=== PATIENT | female | born 1975 | race Hispanic/Latino ===

== ENCOUNTER 2021-08-09 17:45 | Emergency (ER) | payer MEDICARE ==
[~2021-08-09] VITALS: Ht 157.5 cm; Wt 99.8 kg
[2021-08-09] MEDS ORDERED: FAMOTIDINE 20MG VIAL IV ONE (18:00)
[2021-08-09] MEDS ORDERED: MAG/ALUM/SIMETH 30 ML UDCUP PO ONE (18:00)
[2021-08-09] MEDS ORDERED: MORPHINE 2 MG SYG IVP ONE (18:00)
[2021-08-09] MEDS ORDERED: ONDANSETRON 4MG INJ IVP ONE (18:00)
[2021-08-09 18:06] LABS: BILIRUBIN,URINE Negative (NEGATIVE); COLOR,URINE Yellow (YELLOW); GLUCOSE, URINE (UA) Negative (NEGATIVE); KETONES,URINE Negative (NEGATIVE); LEUKOCYTE ESTERASE ,URINE Negative (NEGATIVE); NITRATE,URINE Negative (NEGATIVE); OCCULT BLOOD,URINE Negative (NEGATIVE); PH,URINE 5.5 (5.0-8.0); PROTEIN,URINE Negative (NEGATIVE); UROBILINOGEN,URINE 0.2 mg/dL (0.2-1.0)
[2021-08-09 18:07] LABS: APPEARANCE,URINE CLEAR (CLEAR)
[2021-08-09 18:17] LABS: BASOPHILS % (AUTO) 0.4 % (0.0-5.0); EOSINOPHILS % (AUTO) 1.1 % (0.0-8.0); HEMATOCRIT 41.8 % (36-48); LYMPHOCYTES % (AUTO) 22.6 % (21.0-51.0); MEAN CORPUSCULAR HEMOGLOBIN 31.2 pg (27.0-33.0); MEAN CORPUSCULAR HGB CONC 33.5 g/dL (32.0-36.0); MEAN CORPUSCULAR VOLUME 93.1 fL (79-99); MONOCYTES % (AUTO) 8.4 % (3.0-13.0); PLATELET COUNT (AUTO) 257 K/uL (130-400); RED BLOOD CELL COUNT(AUTO) 4.49 MIL/uL (4.00-5.50); RED CELL DISTRIBUTION WIDTH 12.6 % (11.0-15.5); WHITE BLOOD COUNT (AUTO) 10.8 K/uL (4.8-10.8)
[2021-08-09 18:31] LABS: CREATININE 0.8 mg/dL (0.5-1.5); POTASSIUM 4.3 mmol/L (3.5-5.1)
[2021-08-09 18:41] LABS: ALBUMIN 3.5 g/dL (3.5-5.0); BILIRUBIN,TOTAL 0.2 mg/dL (0.2-1.0); TOTAL PROTEIN, SERUM 7.8 g/dL (6.0-8.3)
[2021-08-09] MEDS ORDERED: FAMO-136 PO (19:11)
[2021-08-09] MEDS ORDERED: DICY20TA2 PO (19:11)
[2021-08-09] MEDS ORDERED: ONDA4TAB10 PO (19:11)
[2021-08-09 19:21] VITALS: BP 142/72
== END 2021-08-09 19:30 | disposition home or self-care (01) ==
LOC: EDH 17:45
DX: K29.70 Gastritis, unspecified, without bleeding (principal); I10 Essential (primary) hypertension; E78.00 Pure hypercholesterolemia, unspecified; Z88.0 Allergy status to penicillin; Z88.6 Allergy status to analgesic agent
CPT/HCPCS: 36415; 71045; 76705; 80053; 81003; 83690; 84484; 84702; 85025; 93005; 96374; 96375; 99285; J2405; J3490

== ENCOUNTER 2021-08-27 02:04 | Emergency (ER) | payer MEDICARE ==
[~2021-08-27] VITALS: Ht 134.6 cm; Wt 101.6 kg
[~2021-08-27 02:04] MED LIST: DICY20TA2 PO; FAMO-136 PO; ONDA4TAB10 PO
[2021-08-27 02:49] LABS: BASOPHILS % (AUTO) 0.5 % (0.0-5.0); HEMATOCRIT 41.1 % (36-48); LYMPHOCYTES % (AUTO) 29.1 % (21.0-51.0); MEAN CORPUSCULAR HGB CONC 32.8 g/dL (32.0-36.0); MEAN CORPUSCULAR VOLUME 94.5 fL (79-99); MONOCYTES % (AUTO) 8.3 % (3.0-13.0); NEUTROPHILS % (AUTO) 59.6 % (40.0-77.0); PLATELET COUNT (AUTO) 243 K/uL (130-400); RED BLOOD CELL COUNT(AUTO) 4.35 MIL/uL (4.00-5.50); RED CELL DISTRIBUTION WIDTH 12.5 % (11.0-15.5); WHITE BLOOD COUNT (AUTO) 8.8 K/uL (4.8-10.8)
[2021-08-27] MEDS ORDERED: MAG/ALUM/SIMETH 30 ML UDCUP PO ONE (03:00)
[2021-08-27] MEDS ORDERED: DICYCLOMINE HCL 10 MG/5 ML ML PO ONE (03:00)
[2021-08-27] MEDS ORDERED: 0.9%NACL 1000ML 1,000 ML IV ONE (03:00)
[2021-08-27] MEDS ORDERED: ONDANSETRON 4MG INJ IVP ONE (03:00)
[2021-08-27] MEDS ORDERED: LIDOCAINE HCL 2% VISCOUS 15 ML UDCUP PO ONE (03:00)
[2021-08-27 03:06] LABS: CREATININE 0.8 mg/dL (0.5-1.5); POTASSIUM 4.5 mmol/L (3.5-5.1)
[2021-08-27 03:07] LABS: BILIRUBIN,URINE Negative (NEGATIVE); COLOR,URINE Yellow (YELLOW); GLUCOSE, URINE (UA) Negative (NEGATIVE); KETONES,URINE Negative (NEGATIVE); LEUKOCYTE ESTERASE ,URINE Negative (NEGATIVE); NITRATE,URINE Negative (NEGATIVE); OCCULT BLOOD,URINE Negative (NEGATIVE); PH,URINE 6.5 (5.0-8.0); PROTEIN,URINE Negative (NEGATIVE); UROBILINOGEN,URINE 0.2 mg/dL (0.2-1.0)
[2021-08-27 03:10] LABS: APPEARANCE,URINE CLEAR (CLEAR)
[2021-08-27 03:17] LABS: ALBUMIN 3.2 g/dL (3.5-5.0); BILIRUBIN,TOTAL 0.2 mg/dL (0.2-1.0); TOTAL PROTEIN, SERUM 7.1 g/dL (6.0-8.3)
[2021-08-27] MEDS ORDERED: IOHEXOL 350 MG/ML 100ML INFUS..BTL IV ONE (03:42)
[2021-08-27] MEDS ORDERED: ACET1TAB25 PO (04:43)
[2021-08-27 05:04] VITALS: BP 119/64
== END 2021-08-27 05:13 | disposition home or self-care (01) ==
LOC: EDH 02:04
DX: K43.9 Ventral hernia without obstruction or gangrene (principal); R11.2 Nausea with vomiting, unspecified; E78.00 Pure hypercholesterolemia, unspecified; F17.200 Nicotine dependence, unspecified, uncomplicated; Z88.0 Allergy status to penicillin; Z88.6 Allergy status to analgesic agent; Z79.899 Other long term (current) drug therapy
CPT/HCPCS: 36415; 74177; 80053; 81003; 83690; 84484; 85025; 96361; 96374; 99285; J2405; J7030; Q9967

== ENCOUNTER 2021-09-02 15:01 | Emergency (ER) | payer MEDICARE ==
[~2021-09-02] VITALS: Ht 149.9 cm; Wt 101.6 kg
[~2021-09-02 15:01] MED LIST changes: +ACET1TAB25 PO
[2021-09-02] MEDS ORDERED: 0.9%NACL 1000ML 1,000 ML IV ONE (17:00)
[2021-09-02] MEDS ORDERED: METOCLOPRAMIDE 10 MG/2 ML VIAL IVP ONE (17:00)
[2021-09-02] MEDS ORDERED: MAG/ALUM/SIMETH 30 ML UDCUP PO ONE (17:00)
[2021-09-02 17:14] LABS: BASOPHILS % (AUTO) 0.5 % (0.0-5.0); EOSINOPHILS % (AUTO) 0.6 % (0.0-8.0); HEMATOCRIT 43.1 % (36-48); LYMPHOCYTES % (AUTO) 22.3 % (21.0-51.0); MEAN CORPUSCULAR HEMOGLOBIN 31.4 pg (27.0-33.0); MEAN CORPUSCULAR HGB CONC 34.1 g/dL (32.0-36.0); MEAN CORPUSCULAR VOLUME 92.1 fL (79-99); MONOCYTES % (AUTO) 6.7 % (3.0-13.0); NEUTROPHILS % (AUTO) 69.6 % (40.0-77.0); PLATELET COUNT (AUTO) 275 K/uL (130-400); RED BLOOD CELL COUNT(AUTO) 4.68 MIL/uL (4.00-5.50); RED CELL DISTRIBUTION WIDTH 12.2 % (11.0-15.5); WHITE BLOOD COUNT (AUTO) 9.5 K/uL (4.8-10.8)
[2021-09-02 17:24] LABS: CREATININE 0.8 mg/dL (0.5-1.5); POTASSIUM 3.8 mmol/L (3.5-5.1)
[2021-09-02 17:35] LABS: ALBUMIN 3.7 g/dL (3.5-5.0); BILIRUBIN,TOTAL 0.2 mg/dL (0.2-1.0); TOTAL PROTEIN, SERUM 7.9 g/dL (6.0-8.3)
[2021-09-02] MEDS ORDERED: MORPHINE 2 MG SYG IVP ONE (19:00)
[2021-09-02] MEDS ORDERED: ACET1TAB25 PO (19:26)
[2021-09-02] MEDS ORDERED: DICY20TA2 PO (19:26)
[2021-09-02] MEDS ORDERED: METO10TA41 PO (19:26)
[2021-09-02 19:39] VITALS: BP 132/78
== END 2021-09-02 20:03 | disposition home or self-care (01) ==
LOC: EDH 15:01
DX: A08.4 Viral intestinal infection, unspecified (principal); K43.9 Ventral hernia without obstruction or gangrene; Z88.0 Allergy status to penicillin; Z88.6 Allergy status to analgesic agent; E78.00 Pure hypercholesterolemia, unspecified; E66.9 Obesity, unspecified; F17.200 Nicotine dependence, unspecified, uncomplicated; Z79.899 Other long term (current) drug therapy; Z68.42 Body mass index [BMI] 45.0-49.9, adult
CPT/HCPCS: 36415; 80053; 83690; 84702; 85025; 96361; 96374; 96375; 99284; J2765; J7030

== ENCOUNTER 2021-09-17 07:37 | Emergency (ER) | payer MEDICARE ==
[~2021-09-17] VITALS: Ht 142.2 cm; Wt 103.0 kg
[~2021-09-17 07:37] MED LIST changes: +METO10TA41 PO
[2021-09-17 08:35] LABS: BASOPHILS % (AUTO) 0.5 % (0.0-5.0); EOSINOPHILS % (AUTO) 1.7 % (0.0-8.0); HEMATOCRIT 43.3 % (36-48); LYMPHOCYTES % (AUTO) 27.4 % (21.0-51.0); MEAN CORPUSCULAR HEMOGLOBIN 30.9 pg (27.0-33.0); MEAN CORPUSCULAR HGB CONC 32.8 g/dL (32.0-36.0); MEAN CORPUSCULAR VOLUME 94.1 fL (79-99); MONOCYTES % (AUTO) 9.4 % (3.0-13.0); NEUTROPHILS % (AUTO) 60.7 % (40.0-77.0); PLATELET COUNT (AUTO) 243 K/uL (130-400); RED CELL DISTRIBUTION WIDTH 12.6 % (11.0-15.5); WHITE BLOOD COUNT (AUTO) 7.5 K/uL (4.8-10.8)
[2021-09-17 09:04] LABS: CREATININE 0.7 mg/dL (0.5-1.5); POTASSIUM 3.8 mmol/L (3.5-5.1)
[2021-09-17 09:09] LABS: ALBUMIN 3.4 g/dL (3.5-5.0); BILIRUBIN,TOTAL 0.2 mg/dL (0.2-1.0); TOTAL PROTEIN, SERUM 7.6 g/dL (6.0-8.3)
[2021-09-17 09:14] VITALS: BP 129/68
[2021-09-17] MEDS ORDERED: HYDR-4060 PO (09:26)
[2021-09-17] MEDS ORDERED: HYDROCODONE/ACETAMINOPHEN 5/325 MG TAB PO ONE (10:00)
[2021-09-17] MEDS ORDERED: HYDROCODONE/ACETAMINOPHEN 5/325 MG TAB ONE (10:04)
[2021-09-17 10:34] LABS: APPEARANCE,URINE Clear (CLEAR); BILIRUBIN,URINE Negative (NEGATIVE); COLOR,URINE Yellow (YELLOW); GLUCOSE, URINE (UA) Negative (NEGATIVE); KETONES,URINE Negative (NEGATIVE); LEUKOCYTE ESTERASE ,URINE Negative (NEGATIVE); NITRATE,URINE Negative (NEGATIVE); OCCULT BLOOD,URINE Negative (NEGATIVE); PROTEIN,URINE Negative (NEGATIVE); UROBILINOGEN,URINE 0.2 mg/dL (0.2-1.0)
== END 2021-09-17 10:10 | disposition home or self-care (01) ==
LOC: EDH 07:37
DX: K43.9 Ventral hernia without obstruction or gangrene (principal); J45.909 Unspecified asthma, uncomplicated; E78.49 Other hyperlipidemia; F17.200 Nicotine dependence, unspecified, uncomplicated; Z88.6 Allergy status to analgesic agent; Z88.0 Allergy status to penicillin; Z79.899 Other long term (current) drug therapy
CPT/HCPCS: 36415; 80053; 81003; 81025; 85025

== ENCOUNTER 2021-10-20 17:45 | Emergency (ER) | payer MEDICARE ==
[~2021-10-20] VITALS: Ht 134.6 cm; Wt 102.1 kg
[~2021-10-20 17:45] MED LIST changes: +HYDR-4060 PO
[2021-10-20 19:32] LABS: BASOPHILS % (AUTO) 0.4 % (0.0-5.0); EOSINOPHILS % (AUTO) 2.1 % (0.0-8.0); HEMATOCRIT 45.3 % (36-48); LYMPHOCYTES % (AUTO) 24.8 % (21.0-51.0); MEAN CORPUSCULAR HGB CONC 32.5 g/dL (32.0-36.0); MEAN CORPUSCULAR VOLUME 92.4 fL (79-99); MONOCYTES % (AUTO) 7.9 % (3.0-13.0); NEUTROPHILS % (AUTO) 64.4 % (40.0-77.0); PLATELET COUNT (AUTO) 269 K/uL (130-400); RED CELL DISTRIBUTION WIDTH 12.2 % (11.0-15.5); WHITE BLOOD COUNT (AUTO) 9.2 K/uL (4.8-10.8)
[2021-10-20 20:12] LABS: CREATININE 0.7 mg/dL (0.5-1.5); POTASSIUM 3.3 mmol/L (3.5-5.1)
[2021-10-20 20:16] LABS: ALBUMIN 3.8 g/dL (3.5-5.0); BILIRUBIN,TOTAL 0.1 mg/dL (0.2-1.0); TOTAL PROTEIN, SERUM 8.4 g/dL (6.0-8.3)
[2021-10-20 21:27] LABS: APPEARANCE,URINE Clear (CLEAR); BILIRUBIN,URINE Negative (NEGATIVE); COLOR,URINE Yellow (YELLOW); GLUCOSE, URINE (UA) Negative (NEGATIVE); KETONES,URINE Negative (NEGATIVE); LEUKOCYTE ESTERASE ,URINE Negative (NEGATIVE); NITRATE,URINE Negative (NEGATIVE); OCCULT BLOOD,URINE Negative (NEGATIVE); PROTEIN,URINE Negative (NEGATIVE); UROBILINOGEN,URINE 0.2 mg/dL (0.2-1.0)
[2021-10-20 21:34] LABS: HCG,QUAL RESULT NEGATIVE (NEGATIVE)
[2021-10-20 22:03] VITALS: BP 149/76
[2021-10-20] MEDS ORDERED: MORPHINE 2 MG SYG IVP ONE (22:30)
[2021-10-20] MEDS ORDERED: FAMOTIDINE 20MG VIAL IV ONE (22:30)
[2021-10-20] MEDS ORDERED: ONDANSETRON 4MG INJ IVP ONE (22:30)
[2021-10-20] MEDS ORDERED: DICY20TA2 PO (22:31)
[2021-10-20] MEDS ORDERED: FAMO20TA8 PO (22:31)
[2021-10-20] MEDS ORDERED: ONDA4TAB10 PO (22:31)
== END 2021-10-20 22:45 | disposition home or self-care (01) ==
LOC: EDH 17:45
DX: K42.9 Umbilical hernia without obstruction or gangrene (principal); R10.13 Epigastric pain; R11.0 Nausea; E78.00 Pure hypercholesterolemia, unspecified; J45.909 Unspecified asthma, uncomplicated; F17.200 Nicotine dependence, unspecified, uncomplicated; Z79.899 Other long term (current) drug therapy; Z88.0 Allergy status to penicillin; Z88.6 Allergy status to analgesic agent; Z90.49 Acquired absence of other specified parts of digestive tract
CPT/HCPCS: 36415; 74176; 80053; 81003; 81025; 83690; 85025; 96374; 96375; 99284; J2405; J3490

== ENCOUNTER 2021-11-14 01:15 | Emergency (ER) | payer MEDICARE ==
[~2021-11-14] VITALS: Ht 144.8 cm; Wt 103.0 kg
[~2021-11-14 01:15] MED LIST changes: +FAMO20TA8 PO
[2021-11-14] MEDS ORDERED: ONDANSETRON 4MG INJ IVP ONE (02:00)
[2021-11-14] MEDS ORDERED: PANTOPRAZOLE 40 MG/VIAL IVP ONE (02:00)
[2021-11-14] MEDS ORDERED: FAMOTIDINE 20MG VIAL IV ONE (02:00)
[2021-11-14] MEDS ORDERED: 0.9%NACL 1000ML 1,000 ML IV ONE (02:00)
[2021-11-14 02:41] LABS: BASOPHILS % (AUTO) 0.5 % (0.0-5.0); EOSINOPHILS % (AUTO) 2.2 % (0.0-8.0); HEMATOCRIT 41.6 % (36-48); LYMPHOCYTES % (AUTO) 26.5 % (21.0-51.0); MEAN CORPUSCULAR HEMOGLOBIN 30.6 pg (27.0-33.0); MEAN CORPUSCULAR HGB CONC 32.5 g/dL (32.0-36.0); MEAN CORPUSCULAR VOLUME 94.3 fL (79-99); NEUTROPHILS % (AUTO) 62.2 % (40.0-77.0); PLATELET COUNT (AUTO) 248 K/uL (130-400); RED BLOOD CELL COUNT(AUTO) 4.41 MIL/uL (4.00-5.50); RED CELL DISTRIBUTION WIDTH 12.7 % (11.0-15.5); WHITE BLOOD COUNT (AUTO) 9.9 K/uL (4.8-10.8)
[2021-11-14 02:52] LABS: CREATININE 0.7 mg/dL (0.5-1.5); POTASSIUM 4.1 mmol/L (3.5-5.1)
[2021-11-14 02:56] LABS: ALBUMIN 3.4 g/dL (3.5-5.0); BILIRUBIN,TOTAL 0.1 mg/dL (0.2-1.0); MAGNESIUM 1.9 mg/dL (1.80-2.40); PHENYTOIN (DILANTIN) 1.8 mcg/mL (10.0-20.0); TOTAL PROTEIN, SERUM 7.7 g/dL (6.0-8.3)
[2021-11-14 03:01] LABS: APPEARANCE,URINE CLEAR (CLEAR); BILIRUBIN,URINE NEGATIVE (NEGATIVE); COLOR,URINE YELLOW (YELLOW); GLUCOSE, URINE (UA) NEGATIVE (NEGATIVE); KETONES,URINE NEGATIVE (NEGATIVE); LEUKOCYTE ESTERASE ,URINE NEGATIVE (NEGATIVE); NITRATE,URINE NEGATIVE (NEGATIVE); OCCULT BLOOD,URINE NEGATIVE (NEGATIVE); PROTEIN,URINE NEGATIVE (NEGATIVE); UROBILINOGEN,URINE 0.2 mg/dL (0.2-1.0)
[2021-11-14 03:03] LABS: HCG,QUAL RESULT NEGATIVE (NEGATIVE)
[2021-11-14 03:09] LABS: AMPHET/METH SCREEN,URINE NEGATIVE (NEGATIVE); BARBITURATE SCREEN, URINE NEGATIVE (NEGATIVE); BENZODIAZEPINES SCREEN,URINE NEGATIVE (NEGATIVE); CANNABINOID SCREEN,URINE NEGATIVE (NEGATIVE); COCAINE SCREEN,URINE NEGATIVE (NEGATIVE); OPIATE SCREEN,URINE NEGATIVE (NEGATIVE); PHENCYCLIDINE SCREEN,URINE NEGATIVE (NEGATIVE)
[2021-11-14] MEDS ORDERED: METO-296 PO (03:48)
[2021-11-14] MEDS ORDERED: PANT40TA PO (03:48)
[2021-11-14] MEDS ORDERED: ONDA4TAB10 PO (03:48)
[2021-11-14] MEDS ORDERED: PHENYTOIN SODIUM 100 MG ERCAP PO ONE (04:00)
[2021-11-14 04:26] VITALS: BP 142/87
== END 2021-11-14 04:25 | disposition home or self-care (01) ==
LOC: EDH 01:15
DX: E86.9 Volume depletion, unspecified (principal); R11.10 Vomiting, unspecified; R53.81 Other malaise; R89.2 Abnormal level of other drugs, medicaments and biological substances in specimens from other organs, systems and tissues; M25.561 Pain in right knee; Z20.822 Contact with and (suspected) exposure to COVID-19; E78.5 Hyperlipidemia, unspecified; J45.909 Unspecified asthma, uncomplicated; K21.9 Gastro-esophageal reflux disease without esophagitis; F17.200 Nicotine dependence, unspecified, uncomplicated; Z88.0 Allergy status to penicillin; Z88.1 Allergy status to other antibiotic agents; Z88.6 Allergy status to analgesic agent; Z79.899 Other long term (current) drug therapy; Z90.49 Acquired absence of other specified parts of digestive tract
CPT/HCPCS: 36415; 71045; 73562; 80053; 80185; 80305; 81003; 81025; 83735; 84484; 85025; 87635; 93005; 96374; 96375; 99285; C9113; C9803; J2405; J3490; J7030

== ENCOUNTER 2021-12-25 22:59 | Emergency (ER) | payer MEDICARE ==
[~2021-12-25] VITALS: Ht 147.3 cm; Wt 105.2 kg
[~2021-12-25 22:59] MED LIST changes: +ACET-2079 PO; -ACET1TAB25 PO; +METO-296 PO; +PANT40TA PO
[2021-12-25 23:55] LABS: APPEARANCE,URINE Clear (CLEAR); BILIRUBIN,URINE Negative (NEGATIVE); COLOR,URINE Yellow (YELLOW); GLUCOSE, URINE (UA) Negative (NEGATIVE); KETONES,URINE Negative (NEGATIVE); LEUKOCYTE ESTERASE ,URINE Trace (NEGATIVE); NITRATE,URINE Negative (NEGATIVE); OCCULT BLOOD,URINE Negative (NEGATIVE); PH,URINE 6.5 (5.0-8.0); PROTEIN,URINE Negative (NEGATIVE); UROBILINOGEN,URINE 0.2 mg/dL (0.2-1.0)
[2021-12-25 23:57] LABS: BASOPHILS % (AUTO) 0.5 % (0.0-5.0); EOSINOPHILS % (AUTO) 1.7 % (0.0-8.0); HEMATOCRIT 41.6 % (36-48); LYMPHOCYTES % (AUTO) 23.6 % (21.0-51.0); MEAN CORPUSCULAR HEMOGLOBIN 29.8 pg (27.0-33.0); MEAN CORPUSCULAR HGB CONC 32.7 g/dL (32.0-36.0); MONOCYTES % (AUTO) 7.7 % (3.0-13.0); NEUTROPHILS % (AUTO) 66.1 % (40.0-77.0); PLATELET COUNT (AUTO) 240 K/uL (130-400); RED BLOOD CELL COUNT(AUTO) 4.57 MIL/uL (4.00-5.50); RED CELL DISTRIBUTION WIDTH 12.7 % (11.0-15.5); WHITE BLOOD COUNT (AUTO) 8.5 K/uL (4.8-10.8)
[2021-12-25 23:58] LABS: HCG,QUAL RESULT NEGATIVE (NEGATIVE)
[2021-12-26 00:12] LABS: CREATININE 0.8 mg/dL (0.5-1.5); POTASSIUM 3.6 mmol/L (3.5-5.1)
[2021-12-26 00:12] LABS: RBC,URINE 0-1 /HPF (0-1)
[2021-12-26 00:13] LABS: BACTERIA,URINE Few /HPF (None Seen)
[2021-12-26 00:13] LABS: ALBUMIN 3.2 g/dL (3.5-5.0); BILIRUBIN,TOTAL 0.2 mg/dL (0.2-1.0); TOTAL PROTEIN, SERUM 7.4 g/dL (6.0-8.3)
[2021-12-26] MEDS ORDERED: 0.9%NACL 1000ML 1,000 ML IV ONE (00:30)
[2021-12-26] MEDS ORDERED: CEFTRIAXONE 1G VIAL IVP ONE (00:30)
[2021-12-26] MEDS ORDERED: KETOROLAC 30MG VIAL (30MG/ML) IVP ONE (00:30)
[2021-12-26] MEDS ORDERED: ORPHENADRINE CITRATE 30 MG/ML ML IVP ONE (00:30)
[2021-12-26] MEDS ORDERED: ONDANSETRON 4MG INJ IVP ONE (00:30)
[2021-12-26] MEDS ORDERED: KETOROLAC 30MG VIAL (30MG/ML) ONE (00:47)
[2021-12-26] MEDS ORDERED: CEFTRIAXONE 1G VIAL ONE (00:47)
[2021-12-26] MEDS ORDERED: PHARMACY COMMUNICATION MISC SCH (01:00)
[2021-12-26] MEDS ORDERED: MELO7.5T12 PO (01:38)
[2021-12-26] MEDS ORDERED: CEPH500B PO (01:38)
[2021-12-26] MEDS ORDERED: CYCL-309 PO (01:38)
[2021-12-26 01:47] VITALS: BP 135/85
== END 2021-12-26 01:44 | disposition home or self-care (01) ==
LOC: EDH 22:59
DX: M54.50 Low back pain, unspecified (principal); M62.838 Other muscle spasm; N39.0 Urinary tract infection, site not specified; E86.9 Volume depletion, unspecified; J45.909 Unspecified asthma, uncomplicated; K21.9 Gastro-esophageal reflux disease without esophagitis; E78.00 Pure hypercholesterolemia, unspecified; F17.200 Nicotine dependence, unspecified, uncomplicated; Z90.89 Acquired absence of other organs; Z88.0 Allergy status to penicillin; Z88.6 Allergy status to analgesic agent; Z88.1 Allergy status to other antibiotic agents; Z79.899 Other long term (current) drug therapy; Z98.890 Other specified postprocedural states
CPT/HCPCS: 36415; 80053; 81001; 81025; 83690; 85025; 96361; 96374; 96375; 99284; J0696; J1885; J2360; J2405; J7030

== ENCOUNTER 2021-12-29 06:55 | Emergency (ER) | payer MEDICARE ==
[~2021-12-29] VITALS: Ht 139.7 cm; Wt 105.2 kg
[~2021-12-29 06:55] MED LIST changes: +CEPH500B PO; +CYCL-309 PO; +MELO7.5T12 PO
[2021-12-29 08:53] VITALS: BP 123/69
== END 2021-12-29 09:02 | disposition home or self-care (01) ==
LOC: EDH 06:55
DX: J06.9 Acute upper respiratory infection, unspecified (principal); R50.9 Fever, unspecified; Z20.822 Contact with and (suspected) exposure to COVID-19; J45.909 Unspecified asthma, uncomplicated; K21.9 Gastro-esophageal reflux disease without esophagitis; E78.00 Pure hypercholesterolemia, unspecified; Z88.0 Allergy status to penicillin; Z88.6 Allergy status to analgesic agent; Z88.1 Allergy status to other antibiotic agents; Z79.899 Other long term (current) drug therapy; Z98.890 Other specified postprocedural states; Z90.89 Acquired absence of other organs
CPT/HCPCS: 87635; 87804 ×2; 99283; C9803